=== PATIENT | male | born 1995 | race Caucasian/White ===

== ENCOUNTER 2019-01-04 06:26 | Emergency (ER) | payer SELFPAY ==
[~2019-01-04] VITALS: Ht 165.1 cm; Wt 76.5 kg
[~2019-01-04 06:26] MED LIST: HYDR-3980 PO; IBUP800T48 PO
[2019-01-04 06:28] VITALS: BP 133/85; PULSE 99; RESP 18; Ht 165.1 cm; Wt 76.5 kg
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
== END 2019-01-04 15:03 | disposition home or self-care (01) ==
LOC: FTE 06:26
DX: M54.9 Dorsalgia, unspecified (principal); Z87.891 Personal history of nicotine dependence
CPT/HCPCS: 99282